=== PATIENT | male | born 2000 | race Caucasian/White ===

== ENCOUNTER 2021-11-06 03:08 | Emergency (ER) | payer OTHER ==
[~2021-11-06] VITALS: Ht 167.6 cm; Wt 111.2 kg
[2021-11-06] MEDS ORDERED: CEPHALEXIN MONOHYDRATE 500 MG CAPSULE PO ONE (06:15)
[2021-11-06] MEDS ORDERED: SULFAMETHOX/TRIMETH DS 800-160 MG/TABLET PO ONE (06:15)
[2021-11-06 06:27] VITALS: BP 154/88
[2021-11-06] MEDS ORDERED: IBUPROFEN 600 MG TABLET PO ONE (06:30)
== END 2021-11-06 07:07 | disposition home or self-care (01) ==
LOC: EMS 03:14
DX: L02.414 Cutaneous abscess of left upper limb (principal); Z91.018 Allergy to other foods
CPT/HCPCS: 99284; Z7502; Z7610